=== PATIENT | female | born 2000 | race Caucasian/White ===

== ENCOUNTER 2019-03-18 19:29 | Emergency (ER) | payer MEDICAID ==
[~2019-03-18] VITALS: Ht 149.9 cm; Wt 68.0 kg
[2019-03-18 19:40] VITALS: BP_SYST 128
[2019-03-18] MEDS ORDERED: ACETAMINOPHEN EXTRA STRENGTH 500 MG TAB PO ONE (21:10)
[2019-03-18 21:26] LABS: APPEARANCE,URINE CLEAR (CLEAR); BILIRUBIN,URINE NEGATIVE (NEGATIVE); BLOOD, URINE NEGATIVE (NEGATIVE); COLOR,URINE YELLOW (YELLOW); LEUKOCYTE ESTERASE ,URINE NEGATIVE (NEGATIVE); NITRITE, URINE NEGATIVE (NEGATIVE); PH,URINE 6.5 (5.0-9.0); UGLUCOSE NEGATIVE (NEGATIVE)
[2019-03-18 21:27] LABS: BASOPHILS % (AUTO) 0.3 % (0.0-2.0); EOSINOPHILS # (AUTO) 0.1 K/uL (0-0.4); EOSINOPHILS % (AUTO) 0.9 % (0.0-4.0); HEMATOCRIT 37.4 % (36-48); HEMOGLOBIN 12.5 g/dL (12.0-16.0); LYMPHOCYTES # (AUTO) 4.1 K/uL (2.5-16.5); LYMPHOCYTES % (AUTO) 43.5 % (20.5-51.1); MEAN CORPUSCULAR HEMOGLOBIN 29 pg (27-31); MEAN CORPUSCULAR HGB CONC 34 g/dL (33-37); MEAN CORPUSCULAR VOLUME 85.9 fL (80-94); MONOCYTES # (AUTO) 1.1 K/uL (0.8-1.0); MONOCYTES % (AUTO) 11.4 % (1.7-9.3); NEUTROPHILS # (AUTO) 4.1 K/uL (1.8-7.7); NEUTROPHILS % (AUTO) 43.9 % (42.2-75.2); PLATELET COUNT (AUTO) 263 K/uL (140-450); RED BLOOD CELL COUNT(AUTO) 4.35 MIL/uL (4.20-5.40); RED CELL DISTRIBUTION WIDTH 13.9 % (11.6-13.7); WHITE BLOOD COUNT (AUTO) 9.3 K/uL (4.5-11.0)
[2019-03-18 22:00] LABS: ALBUMIN 2.4 g/dL (3.4-5.0); ANION GAP 13.2 (8-16); CARBON DIOXIDE 25.6 mmol/L (21-32); CREATININE 0.7 mg/dL (0.6-1.3); POTASSIUM 3.8 mmol/L (3.5-5.1); TOTAL BILIRUBIN 0.1 mg/dL (0.0-1.0)
[2019-03-18 22:37] VITALS: BP 110/54
== END 2019-03-18 22:37 | disposition home or self-care (01) ==
LOC: MED 19:29
DX: O02.1 Missed abortion (principal); Z3A.10 10 weeks gestation of pregnancy
CPT/HCPCS: 36415; 76801; 80053; 81003; 84702; 85025; 86900; 86901; 99284; Q0092

== ENCOUNTER 2021-11-10 12:41 | Emergency (ER) | payer MEDICAID, OTHER ==
[~2021-11-10] VITALS: Ht 149.9 cm; Wt 76.7 kg
[2021-11-10 12:47] VITALS: BP 122/66
--- NOTE | 2021-11-10 12:58 | NUR ---
PATIENT AMB TO BED 7.
[2021-11-10] MEDS ORDERED: IBUPROFEN 600 MG TAB PO ONE (13:20)
--- NOTE | 2021-11-10 13:23 | NUR ---
PT TAKEN TO XR VIA [facility].
--- NOTE | 2021-11-10 13:35 | NUR ---
Patient is back from X-Ray
--- NOTE | 2021-11-10 13:35 | NUR ---
PT TAKEN TO ER BED 7 [facility] FROM XR.
[2021-11-10] MEDS ORDERED: IBUP-2213 PO (13:52)
--- NOTE | 2021-11-10 14:01 | NUR ---
Patient discharged with v/s stable. Written and verbal after care instructions given. Patient alert, oriented and verbalized understanding of instructions. Ambulatory with steady gait. All questions addressed prior to discharge. ID band removed. Patient advised to follow up with PMD. Rx of Motrin given. Opportunity to ask questions provided and answered. Work note handed to patient.
--- NOTE | 2021-11-10 14:19 | NUR ---
The patient's care was reviewed and supervised by Lyubov Mendoza RN.
== END 2021-11-10 14:01 | disposition home or self-care (01) ==
LOC: MED 12:41
DX: S70.11XA Contusion of right thigh, initial encounter (principal); Z79.899 Other long term (current) drug therapy; Z98.890 Other specified postprocedural states; W23.0XXA Caught, crushed, jammed, or pinched between moving objects, initial encounter; Y93.89 Activity, other specified; Y92.89 Other specified places as the place of occurrence of the external cause; Y99.8 Other external cause status
CPT/HCPCS: 81002; 81025; 99283

== ENCOUNTER 2022-02-03 14:09 | Emergency (ER) | payer OTHER ==
[~2022-02-03] VITALS: Ht 149.9 cm; Wt 76.7 kg
[~2022-02-03 14:09] MED LIST: IBUP-2213 PO
[2022-02-03 14:22] VITALS: BP 110/62
--- NOTE | 2022-02-03 14:28 | NUR ---
PT AMB T0 BED 1.
[2022-02-03] MEDS ORDERED: BENZ-300 PO (15:42)
[2022-02-03] MEDS ORDERED: PROM118S5 PO (15:42)
[2022-02-03] MEDS ORDERED: FLONAS NS (15:42)
[2022-02-03] MEDS ORDERED: IBUP-2213 PO (15:42)
[2022-02-03] MEDS ORDERED: ONDA-188 SL (15:43)
[2022-02-03] MEDS ORDERED: ONDANSETRON 4 MG ODT PO ONE (15:45)
--- NOTE | 2022-02-03 15:54 | NUR ---
Obtained FLu amd AQUILINO specimens, handed to CPT Kamala at bedside.
--- NOTE | 2022-02-03 16:10 | NUR ---
Patient discharged with v/s stable. Written and verbal after care instructions given and explained. Patient alert, oriented and verbalized understanding of instructions. Ambulatory with steady gait. All questions addressed prior to discharge. ID band removed. Patient advised to follow up with PMD. Rx of ZOFRAN, IBUPROFEN, PROMETHAZINE/DEXTROMETHORPHAN, FLONASE NASAL, AND CEPACOL SORE THROAT LOZENGE given. Patient educated on indication of medication including possible reaction and side effects. Opportunity to ask questions provided and answered.
[2022-02-03 16:31] VITALS: BP 110/62
== END 2022-02-03 16:10 | disposition home or self-care (01) ==
LOC: MED 14:09
DX: B34.9 Viral infection, unspecified (principal); Z20.822 Contact with and (suspected) exposure to COVID-19; R11.2 Nausea with vomiting, unspecified; Z79.899 Other long term (current) drug therapy; Z98.890 Other specified postprocedural states
CPT/HCPCS: 87426; 87804; 99283; Q0162

== ENCOUNTER 2022-03-10 21:16 | Emergency (ER) | payer OTHER ==
[~2022-03-10] VITALS: Ht 149.9 cm; Wt 76.2 kg
[~2022-03-10 21:16] MED LIST changes: +BENZ-300 PO; +FLONAS NS; +ONDA-188 SL; +PROM118S5 PO
[2022-03-10 21:35] VITALS: BP 133/66
--- NOTE | 2022-03-10 21:38 | NUR ---
PT SENT TO LOBBY.
--- NOTE | 2022-03-10 22:46 | NUR ---
PT TAKEN TO BED 1
[2022-03-10] MEDS ORDERED: [UNRECOGNIZED DRUG - CODE] TP (23:51)
--- NOTE | 2022-03-11 00:30 | NUR ---
Patient discharged with v/s stable. Written and verbal after care instructions given and explained. Patient alert, oriented and verbalized understanding of instructions. Ambulatory with steady gait. All questions addressed prior to discharge. ID band removed. Patient advised to follow up with PMD. Rx of PODOFILOX given. Patient educated on indication of medication including possible reaction and side effects. Opportunity to ask questions provided and answered.
== END 2022-03-11 00:30 | disposition home or self-care (01) ==
LOC: MED 21:16
DX: B07.0 Plantar wart (principal)
CPT/HCPCS: 99283

== ENCOUNTER 2022-05-11 23:21 | Emergency (ER) | payer OTHER ==
[~2022-05-11] VITALS: Ht 149.9 cm; Wt 76.2 kg
[~2022-05-11 23:21] MED LIST changes: +[UNRECOGNIZED DRUG - CODE] TP
[2022-05-11 23:58] VITALS: BP 142/78
[2022-05-12 01:15] VITALS: BP 142/78
--- NOTE | 2022-05-12 02:07 | NUR ---
Patient taken to bed 9.
--- NOTE | 2022-05-12 02:45 | NUR ---
Dr. Wade examining patient.
[2022-05-12] MEDS ORDERED: HYDROcodone/APAP 5/325 MG 1 TAB TAB PO ONE (03:05)
[2022-05-12] MEDS ORDERED: NAPR-54 PO (03:07)
[2022-05-12] MEDS ORDERED: ACET-8386 PO (03:07)
[2022-05-12] MEDS ORDERED: AMOX500C25 PO (03:07)
--- NOTE | 2022-05-12 03:30 | NUR ---
PT C/O RIGHT UPPER TOOTH PAIN, PT NEEDS ROOT CANAL. PT WAITING FOR APPOINTMENT.
[2022-05-12] MEDS ORDERED: ACETAMINOPHEN EXTRA STRENGTH 500 MG TAB PO ONE (03:50)
--- NOTE | 2022-05-12 03:51 | NUR ---
The patient's care was reviewed and supervised by Damaris Tracy RN.
--- NOTE | 2022-05-12 03:51 | NUR ---
Patient discharged with v/s stable. Written and verbal after care instructions given and explained. Patient alert, oriented and verbalized understanding of instructions. Ambulatory with steady gait. All questions addressed prior to discharge. ID band removed. Patient advised to follow up with PMD. Rx of NAPROSYN HYDROCODON AMOXICILLIN given.
== END 2022-05-12 03:51 | disposition home or self-care (01) ==
LOC: MED 23:21
DX: K08.89 Other specified disorders of teeth and supporting structures (principal)
CPT/HCPCS: 99283

== ENCOUNTER 2022-07-17 12:47 | Emergency (ER) | payer OTHER ==
[~2022-07-17] VITALS: Ht 149.9 cm; Wt 79.8 kg
[~2022-07-17 12:47] MED LIST changes: +ACET-8905 PO; +AMOX500C25 PO; +NAPR-54 PO
[2022-07-17 13:01] VITALS: BP 126/79
[2022-07-17] MEDS ORDERED: PROM118S5 PO (13:24)
[2022-07-17] MEDS ORDERED: LIDO15SO PO (13:24)
[2022-07-17] MEDS ORDERED: IBUP-2213 PO (13:24)
--- NOTE | 2022-07-17 13:24 | NUR ---
21/F PRESENTS TO ED WITH C/O PRODUCTIVE COUGH X4 DAYS, REPORTS TAKING NYQUIL AND DAYQUIL WITH NO RELIEF. DENIES FEVERS, CHILLS OR RECENT SICK CONTACTS.
--- NOTE | 2022-07-17 13:40 | NUR ---
Patient discharged with v/s stable. Written and verbal after care instructions ABOUT UPPER RESPIRATORY INFECTION given and explained. Patient alert, oriented and verbalized understanding of instructions. Ambulatory with steady gait. All questions addressed prior to discharge. ID band removed. Patient advised to follow up with PMD. Rx of IBUPROFEN, LIDOCAINE, AND PROMETHAZINE DM SYRUP given. Patient educated on indication of medication including possible reaction and side effects. Opportunity to ask questions provided and answered.
== END 2022-07-17 13:40 | disposition home or self-care (01) ==
LOC: MED 12:47
DX: J06.9 Acute upper respiratory infection, unspecified (principal)
CPT/HCPCS: 99283

== ENCOUNTER 2023-01-22 23:15 | Emergency (ER) | payer OTHER ==
[~2023-01-22] VITALS: Ht 149.9 cm; Wt 76.2 kg
[~2023-01-22 23:15] MED LIST changes: +LIDO15SO4 PO
[2023-01-22 23:20] VITALS: BP 116/77; PULSE 80; RESP 16; TEMP 98; O2SAT 98
--- NOTE | 2023-01-22 23:23 | NUR ---
TO LOBBY A/W BED AMBULATORY
[2023-01-23 00:10] LABS: BASOPHILS % (AUTO) 0.4 % (0.0-2.0); EOSINOPHILS # (AUTO) 0.1 K/uL (0-0.4); EOSINOPHILS % (AUTO) 1.3 % (0.0-4.0); HEMATOCRIT 41.6 % (36-48); HEMOGLOBIN 14.2 g/dL (12.0-16.0); LYMPHOCYTES # (AUTO) 2.8 K/uL (2.5-16.5); MEAN CORPUSCULAR HEMOGLOBIN 29 pg (27-31); MEAN CORPUSCULAR HGB CONC 34 g/dL (33-37); MEAN CORPUSCULAR VOLUME 83.8 fL (80-94); MONOCYTES # (AUTO) 0.8 K/uL (0.8-1.0); MONOCYTES % (AUTO) 11.1 % (1.7-9.3); NEUTROPHILS # (AUTO) 3.7 K/uL (1.8-7.7); NEUTROPHILS % (AUTO) 49.2 % (42.2-75.2); PLATELET COUNT (AUTO) 324 K/uL (140-450); RED BLOOD CELL COUNT(AUTO) 4.96 MIL/uL (4.20-5.40); RED CELL DISTRIBUTION WIDTH 13.3 % (11.6-13.7); WHITE BLOOD COUNT (AUTO) 7.5 K/uL (4.8-10.8)
[2023-01-23 00:23] LABS: ALBUMIN 2.9 g/dL (3.4-5.0); ANION GAP 13.9 (8-16); CARBON DIOXIDE 26.9 mmol/L (21-32); CREATININE 0.8 mg/dL (0.6-1.3); POTASSIUM 3.8 mmol/L (3.5-5.1); TOTAL BILIRUBIN 0.3 mg/dL (0.0-1.0)
--- NOTE | 2023-01-23 00:25 | NUR ---
SEEN AND EXAMINED BY NOAH
[2023-01-23] MEDS ORDERED: LOPE-202 PO (00:43)
[2023-01-23 00:47] VITALS: BP 118/76; PULSE 74; RESP 16; TEMP 98; O2SAT 99
--- NOTE | 2023-01-23 00:47 | NUR ---
Patient discharged with v/s stable. Written and verbal after care instructions given and explained. Patient alert, oriented and verbalized understanding of instructions. Ambulatory with steady gait. All questions addressed prior to discharge. ID band removed. Patient advised to follow up with PMD. Rx of LOPERAMIDE given. Patient educated on indication of medication including possible reaction and side effects. Opportunity to ask questions provided and answered.
== END 2023-01-23 00:47 | disposition home or self-care (01) ==
LOC: MED 23:15
DX: R19.7 Diarrhea, unspecified (principal); R11.2 Nausea with vomiting, unspecified; Z79.899 Other long term (current) drug therapy
CPT/HCPCS: 36415; 80053; 83690; 84703; 85025; 99283